=== PATIENT | female | born 1995 | race African-American/Black ===

== ENCOUNTER 2016-08-02 16:20 | Emergency (ER) | payer OTHER ==
[~2016-08-02] VITALS: Ht 162.6 cm; Wt 81.6 kg
[~2016-08-02 16:20] MED LIST: CYCLOBENZAPRINE10 M1 PO; IBUPROFEN800 M1 PO; IBUPROFEN800 MG PO; KEFLEX500 M1 PO; PERCOCET 325 MG1 TA2 PO; PERCOCET 5-3251 EACH PO; RISPERIDONE1 M1 PO
[2016-08-02] MEDS ORDERED: TRIAMCINOLONE A15 G3 TOP (17:01)
[2016-08-02] MEDS ORDERED: VISTARIL50 M1 PO (17:01)
--- NOTE | 2016-08-02 17:01 | ED SKIN/ALLERGY COMPLAINT ---
History of Present Illness General Chief Complaint: Skin Rash/ Abcess Stated Complaint: RASH ON NECK Source: patient, family, old records Exam Limitations: no limitations Vital Signs & Intake/Output Vital Signs & Intake/Output Vital Signs Date Time Temp Pulse Resp B/P Pulse O2 O2 Flow FiO2 Ox Delivery Rate 08/02 1707 96.9 69 16 105/79 100 Room Air 08/02 1705 99 Room Air 08/02 1627 97.2 91 16 144/75 97 Room Air Allergies Coded Allergies: NO KNOWN ALLERGIES (02/23/16) Reconcile Medications Cephalexin (Keflex) 500 MG CAPSULE 1 TAB PO TID FB Cyclobenzaprine HCl 10 MG TABLET 1 TAB PO TID PRN MUSCLE SPASM Hydroxyzine Pamoate (Vistaril) 50 MG CAPSULE 1 CAP PO TID PRN ITCHING Ibuprofen 800 MG TAB 1 TAB PO 4 TIMES/DAY PRN PAIN Ibuprofen 800 MG TABLET 1 TAB PO TID PRN MUSCLE SPASM Ibuprofen 800 MG TABLET 1 TAB PO TID PRN PAIN OXYCODONE HCL/ACETAMINOPHEN (Percocet 5-325 MG Tablet) 325 MG/5 MG TAB 1-2 TAB PO Q4-6 PRN PRN PAIN TEN...[id number] Oxycodone HCl/Acetaminophen (Percocet 5-325 MG Tablet) 5 MG-325 MG TABLET 1 TAB PO 4XDP PRN PAIN TEN...[id number] Oxycodone HCl/Acetaminophen (Percocet 5-325 MG Tablet) 1 EACH TABLET 1 TAB PO TID PRN BREAKTHROUGH PAIN Risperidone 1 MG TABLET 1 TAB PO QPM MENTAL HEALTH (Reported) Triamcinolone Acetonide 0.1 % OINT...G. 1 GILBERT TOP BID DERMATITIS apply to affected area(s) Triage Note: PT STATES SHE HAS A RASH ON HER NECK FOR A MONTH BUT STATES IT KEEPS GETTING WORSE. Triage Nurses Notes Reviewed? yes Onset: Abrupt Duration: week(s):, constant Timing: recent history Severity: mild, moderate Severity Numbers: 5 Location: NECK Possible Factors: no cause identified No Modifying Factors: none Associated Symptoms: PRURITUS : No Patient currently breastfeeds: No HPI: 21-year-old female with no medical history presents to emergency room for evaluation complaining of an itchy rash to the left side of her neck for the past one month. Patient states she's been using creams and moisturizers without improvement she has not taken anything for the itching. Denies history of similar rashes in the past and she denies any other rash on her skin today. No sick contacts or recent travel. No new soaps or detergents or medications. She denies any difficulty swallowing or breathing. She is otherwise without any complaints. (MELONY BLANCO) Past History Travel History Traveled to [place] past 21 day No Medical History Any Pertinent Medical History? see below for history Neurological: NONE EENT: NONE Cardiovascular: NONE Respiratory: NONE Gastrointestinal: NONE Hepatic: NONE Renal: NONE Musculoskeletal: right shoulder dislocation Psychiatric: bipolar disease Endocrine: NONE Blood Disorders: NONE Cancer(s): NONE Surgical History Surgical History: N Psychosocial History What is your primary language Kuwaiti Tobacco Use: Never used ETOH Use: denies use Illicit Drug Use: denies illicit drug use Family History Hx Contributory? No (MELONY BLANCO) Review of Systems Review of Systems Constitutional: Reports: see HPI. All Other Systems: Reviewed and Negative Comments Review of systems: See HPI, All other systems negative. Constitutional, no chills no fever, no malaise HEENT: no sore throat no congestion, no ear pain Cardiovascular: No chest pain , no palpitation Skin,SEE HPI Respiratory: No dyspnea no cough no sputum GI: No nausea no vomiting, no diarrhea : No dysuria Muscle skeletal: No joint pain, no joint swelling, no back pain, no neck pain, Neurologic: no headache Psych: No stress Heme/endocrine: No bruising no bleeding Immunology: No lymphadenopathy, (MELONY BLANCO) Physical Exam Physical Exam General Appearance: well developed/nourished, no apparent distress, alert, awake Comments: Well-developed well-nourished patient in no apparent distress. HEENT: Atraumatic, extraocular motion intact Neck: Supple, FROM, no lymphadenopathy Back: FROM, Nontender Cardiovascular: Regular rate and rhythms no murmurs Respiratory: No respiratory distress. Patient speaking in full complete sentences. Breath sounds clear to auscultation bilaterally: NO W/R/R Extremities: full range of motion Neuro: Alert and oriented x3 Skin: Warm & dry; non-raised macular scaly rash 6 x 5 ED left lateral neck, no surrounding erythema, no vesicles, no other rash to the exposed skin Psych: Mood affect normal, normal memory normal judgment. (MELONY BLANCO) Progress Differential Diagnosis: abscess/cellulitis, allergic reaction, contact dermatitis, ACANTHOSIS NIGRICANS Plan of Care: Steroids cream and prescription for Vistaril provided advised close follow up with her primary care physician if symptoms persist I discussed with her she may need further workup. They feel comfortable plan answered all her questions cleared for discharge (MELONY BLANCO) Departure Departure Time of Disposition: 1657 Disposition: HOME OR SELF CARE Condition: Stable Clinical Impression Primary Impression: Dermatitis Referrals: HARPAL WEEKS,LATOYA Barrera (PCP/Family) Additional Instructions: TRIAMCINOLONE cREAM DIRECTED VISTARIL FOR ITCHING. fOLLOW-UP WITH YOUR PRIMARY CARE PHYSICIAN THIS WEEK. THESE PRESCRIPTIONS WERE SENT TO YOUR [facility]. Departure Forms: Customer Survey General Discharge Information Prescriptions: Current Visit Scripts Triamcinolone Acetonide 1 GILBERT TOP BID #1 TUBE apply to affected area(s) Hydroxyzine Pamoate (Vistaril) 1 CAP PO TID PRN ITCHING #15 CAP (MELONY BLANCO) PA/RESIN REMOVER Co-Sign Statement Statement: ED Attending supervision documentation- [] I saw and evaluated the patient. I have also reviewed all the pertinent lab results and diagnostic results. I agree with the findings and the plan of care as documented in the PA's/RESIN REMOVER's documentation. [X] I have reviewed the ED Record and agree with the PA's/RESIN REMOVER's documentation. [] Additions or exceptions (if any) to the PAs/RESIN REMOVER's note and plan are summarized below: [] (GRACE WEEKS,THAIS)
[2016-08-02 17:07] VITALS: BP 105/79
[2016-08-03] MEDS ORDERED: KEFLEX500 M1 PO (19:36)
[2016-08-03] MEDS ORDERED: TRAMADOL HCL50 M1 PO (19:36)
== END 2016-08-02 17:07 ==
LOC: ERH 16:20
DX: L30.9 Dermatitis, unspecified (principal)

== ENCOUNTER 2016-08-03 14:30 | Emergency (ER) | payer OTHER ==
[~2016-08-03 14:30] MED LIST changes: +TRIAMCINOLONE A15 G3 TOP; +VISTARIL50 M1 PO
--- NOTE | 2016-08-03 18:17 | ED HAND/WRIST INJURY COMPLAINT ---
History of Present Illness General Chief Complaint: Hand or Wrist Injury Stated Complaint: L THUMB NAIL INJURY Source: patient Exam Limitations: no limitations Vital Signs & Intake/Output Vital Signs & Intake/Output Vital Signs Date Time Temp Pulse Resp B/P Pulse O2 O2 Flow FiO2 Ox Delivery Rate 08/03 1916 98.7 80 16 112/62 08/03 1439 98.1 74 16 106/72 Room Air Allergies Coded Allergies: NO KNOWN ALLERGIES (08/03/16) Reconcile Medications Cephalexin (Keflex) 500 MG CAPSULE 1 CAP PO TID NAIL AVULSION Hydroxyzine Pamoate (Vistaril) 50 MG CAPSULE 1 CAP PO TID PRN ITCHING Tramadol HCl 50 MG TABLET 1 TAB PO BIDP PRN PAIN Triamcinolone Acetonide 0.1 % OINT...G. 1 GILBERT TOP BID DERMATITIS apply to affected area(s) Triage Note: C/O LEFT THUMB PAIN. PT WAS PUNCHING AND THE ARTIFICIAL NAIL AND REAL NAME CAME OFF. BLEEDING CONTROLLED. Triage Nurses Notes Reviewed? yes : No Patient currently breastfeeds: No HPI: This patient is a 21-year-old female who presented to the emergency department stay for evaluation of left thumb pain. The patient reported that, "I was going to punch someone, intact my thumb under my fingers to make this, and before I even punched, the nail broke off and now I can't move my finger." The patient reported that when she does not move her thumb she does not feel the pain. However, when she does move her thumb the pain gets up to a 10 out of 10. She feels like her nail is stuck under the acrylic nail. She reported that it was bleeding. The patient denied any radiation of the pain. She reported that it is throbbing. Patient denied any wrist pain. She reported that she did not make contact with anything or anyone before this happened. Past History Travel History Traveled to [place] past 21 day No Medical History Any Pertinent Medical History? see below for history Neurological: NONE EENT: NONE Cardiovascular: NONE Respiratory: NONE Gastrointestinal: NONE Hepatic: NONE Renal: NONE Musculoskeletal: right shoulder dislocation Psychiatric: bipolar disease Endocrine: NONE Blood Disorders: NONE Cancer(s): NONE Surgical History Surgical History: N Psychosocial History What is your primary language Romanian Tobacco Use: Never used ETOH Use: denies use Illicit Drug Use: denies illicit drug use Family History Hx Contributory? No Review of Systems Review of Systems Constitutional: Reports: no symptoms. EENTM: Reports: no symptoms. Respiratory: Reports: no symptoms. Cardiovascular: Reports: no symptoms. GI: Reports: no symptoms. Musculoskeletal: Reports: see HPI. Skin: Reports: no symptoms. Neurological/Psychological: Reports: no symptoms. All Other Systems: Reviewed and Negative Physical Exam Physical Exam Hand Left: artificial nail attached to nailbed/nail of first digit . bleeding. nail partially detatched from nailbed. decreased ROM of first digit. no erythema or edema. tender to palpation over the first digit. radial pulse 2+ Hand Right: normal inspection, normal range of motion Comments: Well-developed well-nourished person in no acute distress HEENT: Moist mucous membranes Neck: Supple, no lymphadenopathy Back: Normal gait Respiratory: No respiratory distress. Speaking in full sentences Extremities: No edema, full range of motion Neuro: Alert and oriented x3 Psych: Mood affect normal, normal memory normal judgment. Skin: Warm and dry, no rash on exposed skin Progress Differential Diagnosis: contusion, dislocation, felon, fracture, sprain, nail injury, nail avulsion Plan of Care: Orders Procedure Date/time Status URINE 08/03 1749 Complete Laboratory Tests 08/03/161824: Urine Test NEGATIVE Diagnostic Imaging: Viewed by Me: Radiology Read. Discussed w/RAD: Radiology Read. Radiology Impression: PATIENT: FANNY PRINCE PRESENT AGE: 21 PATIENT ACCOUNT NO: [id number] : 95 LOCATION: [facility] ORDERING PHYSICIAN: JA JULIO PA-C SERVICE DATE: 08/03/16 EXAM TYPE: RAD - XRY-HAND, LEFT EXAMINATION: XR HAND, LEFT CLINICAL INFORMATION: Thumb injury COMPARISON: None TECHNIQUE: AP, lateral, and oblique views of the left hand. FINDINGS: The bones and soft tissues are normal. No fracture. Alignment is anatomic. Joint spaces are maintained. No erosions or soft tissue calcifications. IMPRESSION: Normal left hand. No acute osseous abnormality of the thumb identified. DICTATED BY: JOHN PRATT MD DATE/TIME DICTATED:1854 VETERINARY MEDICINE DOCTOR:JESSICA DATE/TIME TRANSCRIBED:08/03/161854 CONFIDENTIAL, DO NOT COPY WITHOUT APPROPRIATE AUTHORIZATION. <Electronically signed in Other Vendor System> SIGNED BY: JOHN PRATT MD 08/03/16 5829 Comments: We have no acetone here in the hospital and to soak the acrylic nail off. I cleaned the wound site with sterile water and peroxide. I splinted this patient 's finger with a thumb splint and wrapped it. I will start this patient on oral antibiotics and give her medication for pain. She will be given the name of our hand specialist follow up with. I instructed the patient to return for any worsening symptoms. Departure Departure Disposition: HOME OR SELF CARE Condition: Stable Clinical Impression Primary Impression: Nail avulsion, finger Qualifiers: Encounter type: initial encounter Qualified Code: S61.309A - Unspecified open wound of unspecified finger with damage to nail, initial encounter Referrals: HARPAL WEEKS,LATOYA Barrera (PCP/Family) SAVANAH WEEKS,KAYLEY Additional Instructions: Please keep your thumb in the splint that was applied here in the emergency department. Take the medication for pain as prescribed. Take the antibiotic as prescribed for its full duration. Avoid use of your thumb at this time. Please scallop binder's information has been provided to you in this packet for further evaluation. Return for any worsening symptoms or concerns. Departure Forms: Customer Survey General Discharge Information Prescriptions: Current Visit Scripts Cephalexin (Keflex) 1 CAP PO TID #30 CAP Tramadol HCl 1 TAB PO BIDP PRN PAIN #10 TAB
--- NOTE | 2016-08-03 18:59 | RADIOLOGY REPORT ---
EXAMINATION: XR HAND, LEFT CLINICAL INFORMATION: Thumb injury COMPARISON: None TECHNIQUE: AP, lateral, and oblique views of the left hand. FINDINGS: The bones and soft tissues are normal. No fracture. Alignment is anatomic. Joint spaces are maintained. No erosions or soft tissue calcifications. IMPRESSION: Normal left hand. No acute osseous abnormality of the thumb identified.
[2016-08-03 19:16] VITALS: BP 112/62
[2016-08-03] MEDS ORDERED: KEFLEX500 M1 PO (19:36)
[2016-08-03] MEDS ORDERED: TRAMADOL HCL50 M1 PO (19:36)
== END 2016-08-03 19:48 ==
LOC: ERH 14:30
DX: S61.012A Laceration without foreign body of left thumb without damage to nail, initial encounter (principal); X58.XXXA Exposure to other specified factors, initial encounter
CPT/HCPCS: 73130-LT; 81025

== ENCOUNTER 2016-08-29 12:01 | Emergency (ER) | payer OTHER ==
[~2016-08-29 12:01] MED LIST changes: +TRAMADOL HCL50 M1 PO
--- NOTE | 2016-08-29 12:31 | ED GENERAL ADULT ---
History of Present Illness General Chief Complaint: Shoulder Injury Stated Complaint: BIBA FOR ?R SHOULDER DISLOCATION Source: patient, old records Exam Limitations: no limitations Vital Signs & Intake/Output Vital Signs & Intake/Output Vital Signs Date Time Temp Pulse Resp B/P Pulse O2 O2 Flow FiO2 Ox Delivery Rate 08/29 1433 97.0 58 16 101/53 100 Room Air 08/29 1203 98.0 79 16 139/69 99 Room Air Allergies Coded Allergies: NO KNOWN ALLERGIES (08/03/16) Reconcile Medications Oxycodone HCl/Acetaminophen (Percocet 5-325 MG Tablet) 5 MG-325 MG TABLET 1 TAB PO Q6H PRN PAIN Risperidone (Unknown Strength) TABLET (Unknown Dose) PO QPM UNKNOWN (Reported ) Triage Note: BIBA FOR R SHOULDER ? DISLOCATION. STATES SHE STRETCHED ARMS BACK AND FELT IT POP OUT OF THE SOCKET, HAS HX SAME ESTIMATING APPROXIMATELY 14 CONFIRMED DISLOCATIONS. LUC BARNARD MD IS HER ORTHO SPECIALIST, HAS HAD MRI'S IN THE PAST WITH RECOMMENDATIONS FOR SURGICAL INTERVENTION. ARRIVES WITH EMS IMMOBILIZATION IN PLACE. +PULSES. PAIN 10/10, DID NOT TAKE ANY MEDS TRANSITION OF CARE SPECIALIST Triage Nurses Notes Reviewed? yes : No Patient currently breastfeeds: No HPI: Patient is a 21-year-old female presents complaining of right shoulder dislocation. Patient reports that she has dislocated her right shoulder numerous times previously, was reaching up with her right arm approximately 1-2 hours ago when she felt her shoulder pop. Pain is currently 7 out of 10, worsens with any attempt for movement and with palpation. Patient is right-hand dominant. Patient has seen an orthopedist out of [facility], had an MRI and was told that she would need surgery. While patient was in the ambulance she felt like her shoulder might have reduced but continues with the pain. Patient denies numbness, fall. (SURY CÁRDENAS) Past History Travel History Traveled to [place] past 21 day No Medical History Any Pertinent Medical History? see below for history Neurological: NONE EENT: NONE Cardiovascular: NONE Respiratory: NONE Gastrointestinal: NONE Hepatic: NONE Renal: NONE Musculoskeletal: right shoulder dislocation Psychiatric: bipolar disease Endocrine: NONE Blood Disorders: NONE Cancer(s): NONE Surgical History Surgical History: N Psychosocial History What is your primary language Hong Konger Tobacco Use: Never used Family History Hx Contributory? No (SURY CÁRDENAS) Review of Systems Review of Systems Constitutional: Denies: chills, fever. EENTM: Reports: no symptoms. Respiratory: Denies: short of breath. Cardiovascular: Denies: chest pain. GI: Denies: abdominal pain. Musculoskeletal: Reports: see HPI. Denies: back pain, neck pain. Skin: Reports: no symptoms. Neurological/Psychological: Denies: headache, numbness. Hematologic/Endocrine: Denies: bruising, bleeding. Immunologic/Allergic: Denies: splenectomy. (SURY CÁRDENAS) Physical Exam Physical Exam General Appearance: well developed/nourished, alert, awake Head: atraumatic, normal appearance Eyes: Bilateral: normal appearance, PERRL, EOMI. Ears, Nose, Throat: hearing grossly normal Neck: normal inspection, supple, full range of motion, no midline tenderness Respiratory: no respiratory distress Peripheral Pulses: 2+ radial (R) Back: normal inspection, normal range of motion Extremities: tenderness right anterior shoulder. Patient unable to perform active range of motion of right shoulder. Severe pain with attempt of passive flexion and abduction. Neurologic/Psych: awake, alert, oriented x 3 Skin: intact, normal color, warm/dry Core Measures ACS in differential dx? No CVA/TIA Diagnosis: No Severe Sepsis Present: No Septic Shock Present: No (SURY CÁRDENAS) Progress Differential Diagnoses I considered the following diagnoses in my evaluation of the patient: Plan of Care: Orders Procedure Date/time Status Durable Medical Equipment 08/29 1256 Active HUMAN BETA HCG SCREEN 08/29 1238 Complete Laboratory Tests 08/29/16 1246: Total Beta HCG NEGATIVE 08/29/2016 1:55:05 PM: Results of x-ray discussed with patient. As x-ray shows normal alignment attempt at reduction was deferred. Patient placed in shoulder immobilizer by nursing staff. Patient instructed to return to the emergency department if later on today she is still having difficulty with range of motion. Instructed to contact her orthopedist today for further management. (SURY CÁRDENAS) Diagnostic Imaging: Viewed by Me: Radiology Read. Discussed w/RAD: Radiology Read. Radiology Impression: PATIENT: FANNY PRINCE PRESENT AGE: 21 PATIENT ACCOUNT NO: [id number] : 95 LOCATION: [facility] ORDERING PHYSICIAN: SURY GALLAGHER SERVICE DATE: 08/29/16-1237 EXAM TYPE: RAD - XRY-SHOULDER COMPLETE-RIGHT EXAMINATION: XR SHOULDER, RIGHT CLINICAL INFORMATION : Shoulder pain, decreased range of motion. History of dislocation. COMPARISON: None TECHNIQUE: Three views of the right shoulder. FINDINGS: Normal alignment. Remote Hill-Sachs deformity. No acute fracture is evident. The acromioclavicular joint is normal. IMPRESSION: Normal alignment. No acute abnormality is demonstrated. DICTATED BY: MODESTA GUZMAN MD DATE/TIME DICTATED:08/29/161338 ROAD CONSULTANT:JESSICA DATE/TIME TRANSCRIBED:08/29/161338 CONFIDENTIAL, DO NOT COPY WITHOUT APPROPRIATE AUTHORIZATION. <Electronically signed in Other Vendor System> SIGNED BY: MODESTA GUZMAN MD 08/29/16 1344 Initial ED EKG: none (SURY CÁRDENAS) Departure Departure Time of Disposition: 1355 Disposition: HOME OR SELF CARE Condition: Stable Clinical Impression Primary Impression: Shoulder dislocation Qualifiers: Encounter type: initial encounter Laterality: right Qualified Code: S43.004A - Unspecified dislocation of right shoulder joint, initial encounter Referrals: HARPAL WEEKS,LATOYA Barrera (PCP/Family) Additional Instructions: Call your orthopedist today for follow-up within 1 week for further evaluation. Wear the shoulder immobilizer until he follow-up with your orthopedist. Return to the emergency department if difficulty with range of motion or worsening of symptoms. Departure Forms: Customer Survey General Discharge Information Prescriptions: Current Visit Scripts Oxycodone HCl/Acetaminophen (Percocet 5-325 MG Tablet) 1 TAB PO Q6H PRN PAIN #10 TAB (SURY CÁRDENAS) PA/ASSISTANT CUSTOMER SERVICE MANAGER Co-Sign Statement Statement: ED Attending supervision documentation- [] I saw and evaluated the patient. I have also reviewed all the pertinent lab results and diagnostic results. I agree with the findings and the plan of care as documented in the PA's/ASSISTANT CUSTOMER SERVICE MANAGER's documentation. x I have reviewed the ED Record and agree with the PA's/ASSISTANT CUSTOMER SERVICE MANAGER's documentation. [] Additions or exceptions (if any) to the PAs/ASSISTANT CUSTOMER SERVICE MANAGER's note and plan are summarized below: [] (ANTONI WEEKS,HUBERT) Critical Care Note Critical Care Note Critical Care Time: non-applicable (SURY CÁRDENAS)
--- NOTE | 2016-08-29 13:44 | RADIOLOGY REPORT ---
EXAMINATION: XR SHOULDER, RIGHT CLINICAL INFORMATION: Shoulder pain, decreased range of motion. History of dislocation. COMPARISON: None TECHNIQUE: Three views of the right shoulder. FINDINGS: Normal alignment. Remote Hill-Sachs deformity. No acute fracture is evident. The acromioclavicular joint is normal. IMPRESSION: Normal alignment. No acute abnormality is demonstrated.
[2016-08-29] MEDS ORDERED: PERCOCET 5-3251 EACH PO (13:56)
[2016-08-29] MEDS ORDERED: RISPERIDONE1 M1 PO (14:26)
[2016-08-29 14:33] VITALS: BP 101/53
== END 2016-08-29 14:56 ==
LOC: ERH 12:01
DX: S43.004A Unspecified dislocation of right shoulder joint, initial encounter (principal); X58.XXXA Exposure to other specified factors, initial encounter
CPT/HCPCS: 73030-RT; 96374; J3101

== ENCOUNTER 2016-12-28 20:54 | Emergency (ER) | payer OTHER ==
[~2016-12-28] VITALS: Ht 162.6 cm; Wt 83.9 kg
--- NOTE | 2016-12-28 23:39 | ED SKIN/ALLERGY COMPLAINT ---
History of Present Illness General Chief Complaint: General Adult Stated Complaint: PT IS HAS A BITE OR A REACTION Source: patient, old records Exam Limitations: no limitations Vital Signs & Intake/Output Vital Signs & Intake/Output Vital Signs Date Time Temp Pulse Resp B/P B/P Pulse O2 O2 Flow FiO2 Mean Ox Delivery Rate 12/29 0027 98.7 66 18 110/98 97 12/28 2116 96.6 64 20 107/69 97 Room Air ED Intake and Output 12/29 0000 12/28 1200 Intake Total 0 Output Total Balance 0 Intake, Oral 0 Patient 185 lb Weight Weight Reported by Patient Measurement Method Allergies Coded Allergies: No Known Allergies (12/28/16) Reconcile Medications Hydroxyzine HCl 50 MG TABLET 1 TAB PO QPM itching Methylprednisolone. (Medrol) 4 MG TAB.DS.PK 1 DP PO AD allergic reaction 6 on day 1 then reduce by one tablet daily until gone Oxycodone HCl/Acetaminophen (Percocet 5-325 MG Tablet) 5 MG-325 MG TABLET 1 TAB PO Q6H PRN PAIN Risperidone (Unknown Strength) TABLET (Unknown Dose) PO QPM UNKNOWN (Reported ) Triage Note: TRIAGE: PT TO ER C/C ?MULTIPLE BUG BITES. DENIES PAIN, "JUST FEELS ITCHY". Triage Nurses Notes Reviewed? yes Onset: Gradual Duration: intermittent, 1 month Timing: recent history Severity: mild Severity Numbers: 5 Location: generalized Possible Factors: no cause identified No Modifying Factors: none Associated Symptoms: denies : No Patient currently breastfeeds: No HPI: 21 year oldfemale no medial history presents to the ER for eval c/o int rash to her body for hte past 1 month. no sick contacts, no new living conditions, pt has used new soaps in an attempt to get rid of rash without improvement. no history of similar sx in past. no fever, no chills, no diff swallowing or breathing. pt states she is very itchy, worse at night. no history of alleriges in the past. no modifying factors or associated sx otherwise. she has not sought care ofr sx until this evening. (MELONY BLANCO) Past History Travel History Traveled to [place] past 21 day No Medical History Any Pertinent Medical History? see below for history Neurological: NONE EENT: NONE Cardiovascular: NONE Respiratory: NONE Gastrointestinal: NONE Hepatic: NONE Renal: NONE Musculoskeletal: R SHOULDER DISLOCATION Psychiatric: bipolar disease Endocrine: NONE Blood Disorders: NONE Cancer(s): NONE CHIEF ADMINISTRATIVE OFFICER/Reproductive: NONE Surgical History Surgical History: N Psychosocial History What is your primary language Colombian Tobacco Use: Never used ETOH Use: occasional use Illicit Drug Use: denies illicit drug use Family History Hx Contributory? No (MELONY BLANCO) Review of Systems Review of Systems Constitutional: Reports: see HPI. All Other Systems: Reviewed and Negative Comments Review of systems: See HPI, All other systems negative. Constitutional, no chills no fever, no malaise HEENT: No visual changes no sore throat no congestion Cardiovascular: No chest pain , no palpitation , Skin: see hpi Respiratory: No dyspnea no cough no sputum GI: No nausea no vomiting, no diarrhea, n Muscle skeletal: No joint pain, no joint swelling, no back pain, no neck pain, Neurologic: No numbness, no headache Psych: No stress Heme/endocrine: No bruising Immunology: No lymphadenopathy (MELONY BLANCO) Physical Exam Physical Exam General Appearance: well developed/nourished, no apparent distress, alert, awake Comments: Well-developed well-nourished patient in no apparent distress. HEENT: Atraumatic, PERRL, EOMI, no facial swelling Pharynx normal. Neck: Supple, no lymphadenopathy, FROM Back: FROM Cardiovascular: Regular rate and rhythms no murmurs rubs or gallops, Respiratory: No respiratory distress. Patient speaking in full complete sentences. Breath sounds clear to auscultation bilaterally: NO W/R/R Extremities: full range of motion Neuro: awake, alert, and oriented to person, place and time. There were no obvious focal neurologic abnormalities. Skin: Warm & dry;No appreciable rash on exposed skin, No urticaria Psych: Mood affect normal, normal memory normal judgment. (MELONY BLANCO) Progress Differential Diagnosis: abscess/cellulitis, allergic reaction, anaphylaxis, asthma, contact dermatitis, bed bugs, scabies Plan of Care: pt clinically appears well, no rash noted dx for medrol provided. I discussed with the patient at length all of their results. I had an extensive conversation regarding need for close follow up with their primary care physician this week as well as return precautions. I answered all of their questions, they feel comfortable with the plan and follow-up care. I discussed with the patient/family the medications that they will receive. I gave them signs and symptoms that could indicate an adverse reaction. I have advised them to limit their activities until they can see how they respond to the medication. (MELONY BLANCO) Departure Departure Time of Disposition: 19 Disposition: HOME OR SELF CARE Condition: Stable Clinical Impression Primary Impression: Dermatitis Referrals: HARPAL WEEKS,LATOYA Barrera (PCP/Family) SVITLANA HERNANDEZ MD Additional Instructions: medrol dose odell and hydroxyzine as directed. follow up with pmd dr hernandez Departure Forms: Customer Survey General Discharge Information Prescriptions: Current Visit Scripts Methylprednisolone. (Medrol) 1 DP PO AD #1 DP 6 on day 1 then reduce by one tablet daily until gone Hydroxyzine HCl 1 TAB PO QPM #30 TAB (MELONY BLANCO) PA/VIDEO CONTROL OPERATOR Co-Sign Statement Statement: ED Attending supervision documentation- I saw and evaluated the patient. I have also reviewed all the pertinent lab results and diagnostic results. I agree with the findings and the plan of care as documented in the PA's/VIDEO CONTROL OPERATOR's documentation. x I have reviewed the ED Record and agree with the PA's/VIDEO CONTROL OPERATOR's documentation. [] Additions or exceptions (if any) to the PAs/VIDEO CONTROL OPERATOR's note and plan are summarized below: [] (ANTONI WEEKS,HUBERT)
[2016-12-29] MEDS ORDERED: HYDROXYZINE HCL50 M1 PO (00:22)
[2016-12-29] MEDS ORDERED: MEDROL4 M2 PO (00:22)
[2016-12-29 00:27] VITALS: BP 110/98
== END 2016-12-29 00:29 ==
LOC: ERH 20:54
DX: L25.9 Unspecified contact dermatitis, unspecified cause (principal)

== ENCOUNTER → 2017-09-13 | Day surgery (SDC) | payer OTHER ==
[~2017-09-13] VITALS: Ht 162.6 cm; Wt 86.2 kg
[~2017-09-13] MED LIST changes: +HYDROXYZINE HCL50 M1 PO; +MEDROL4 M2 PO
--- NOTE | 2017-09-18 15:00 | Operative Report ---
Operative/Inv Procedure Report Surgery Date: 09/13/17 Name of Procedure: Diagnostic laparoscopy aspiration of cul-de-sac fluid Pre-Operative Diagnosis: Pelvic pain Post-Operative Diagnosis: Ruptured right ovarian hemorrhagic cyst adenomyosis of the uterus Estimated Blood Loss: less than 50ml Surgeon/Corporate Communications Manager: Sydnie Sutherland MD Anesthesia: general endotracheal tube, block Operative/Procedure Note Note: Procedure note patient was taken the operating room placed on position after adequate induction general anesthesia via endotracheal tube patient placed in dorsolithotomy position the vagina from dorsal fashion bladder was catheterized examination anesthesia performed at this point CO2 tenaculum was placed on the Intralipid cervix gentle downward Traction patient tolerated that well at this point the Miranda cannula was placed the Brown was placed the patient remained in dorsolithotomy surgeon regowned and gloved at the level of the umbilicus a stab incision was made to allow for the entry of Veress needle the abdomen was insufflated possibly fully Z CO2 to a vertex also which point the Veress needle was removed a 10 mm trocar was inserted atraumatically at the umbilicus sheath remained in place through that sheath a laparoscope placed under direct visualization a 5 mm port was placed to prevent of symptoms pubis in the midline through that port and aspirated was placed and the hemorrhagic fluid was removed and sent to pathology hemostasis on the hemorrhagic cyst was apparent on maximal CO2 was removed the abdomen on since removed from the abdomen direct visualization the incision at the umbilicus was oversewn using 0 for the fascia 30 was used for the skin of both incisions Marcaine was injected underneath both incisions sterile dressings were applied at this point the counts correct the Miranda was removed the Brown was removed the patient was returned spine position she was extubated awakened from anesthesia and transferred recovery room awake alert with counts correct Findings: Normal uterus slightly enlarged consistent with adenomyosis normal left ovary and tube normal appendix otherwise normal anatomy approximately 50 mL of hemorrhagic fluid surrounding the right ovary with evidence of a recently ruptured hemorrhagic cysts otherwise normal anatomy
== END ==
LOC: STS 03:05
DX: N83.11 Corpus luteum cyst of right ovary (principal); R10.2 Pelvic and perineal pain; N80.0 Endometriosis of uterus
CPT/HCPCS: 81025; 88305; J0131; J1100; J2250; J2405; J2765